=== PATIENT | female | born 1990 | race Caucasian/White ===

== ENCOUNTER 2016-06-06 07:26 | Inpatient (IN) | payer BC ==
[2016-06-06] MEDS ORDERED: Dinoprostone* 10 MG VAG.SUPP VAGINAL ONE (08:02)
[2016-06-06] MEDS ORDERED: Promethazine INJ(RESTRICTED)* 25 MG/ML 1 ML VIAL IM ONE (21:01)
[2016-06-06] MEDS ORDERED: Nalbuphine* 20 MG/ML 1 ML VIAL IM ONE (21:01)
[2016-06-07 09:28] LABS: Hematocrit 39 % (35-47); Hemoglobin 12.9 g/dl (12.0-16.0); Mean Corpuscular HGB Conc 33 g/dl (31-36); Mean Corpuscular Hemoglobin 29 pg (27-31); Mean Corpuscular Volume 87 fL (80-97); Mean Platelet Volume 9 um3 (7.4-10.4); Red Blood Count 4.43 10^6/ul (4.0-5.4); Red Cell Distribution Width 13 % (10.5-15); White Blood Count 12.5 10^3/ul (3.5-10.8)
[2016-06-07 09:43] LABS: Albumin 3.3 g/dL (3.2-5.2); BUN/Creatinine Ratio 14.7 (8-20); Calcium 9.2 mg/dL (8.6-10.3); EGFR African American 132.5 (>60); Globulin 2.8 g/dL (2-4); Potassium 4.1 mmol/L (3.5-5.0); Total Bilirubin 0.4 mg/dL (0.2-1.0); Total Protein 6.1 g/dL (6.4-8.9); Uric Acid 5.8 mg/dL (2.3-6.6)
[2016-06-07] MEDS ORDERED: Oxytocin in LR* 20 UNITS/1,000 ML BAG IVPB SCH (10:00)
[2016-06-07] MEDS ORDERED: Dinoprostone* 10 MG VAG.SUPP VAGINAL ONE (20:50)
[2016-06-07] MEDS ORDERED: Nalbuphine* 20 MG/ML 1 ML VIAL IV ONE (20:52)
[2016-06-07] MEDS ORDERED: Promethazine INJ(RESTRICTED)* 25 MG/ML 1 ML VIAL IV ONE (20:53)
[2016-06-08] MEDS ORDERED: Oxytocin in LR* 20 UNITS/1,000 ML BAG IVPB SCH ×3 (09:00→15:00)
[2016-06-08] MEDS ORDERED: OBEPIDURAL* 250 ML ONE (09:46)
[2016-06-08] MEDS ORDERED: EPHEDrine (Pressors)* 50 MG/ML VIAL IV PUSH PRN ×2 (10:23)
[2016-06-08] MEDS ORDERED: Sodium Citrate/Citric Acid* 15 ML UDC PO PRN (10:23)
[2016-06-08] MEDS ORDERED: Phenylephrine IV* 40 MCG/ML 10 ML SYRINGE IV PUSH PRN ×2 (10:23)
[2016-06-08] MEDS ORDERED: Famotidine TAB* 20 MG PO PRN (10:23)
[2016-06-08] MEDS ORDERED: OBEPIDURAL* 250 ML EPIDURAL SCH (11:00)
[2016-06-08] MEDS ORDERED: Ondansetron INJ* 2 MG/ML VIAL ONE (14:14)
[2016-06-08] MEDS ORDERED: OXYTOCIN* 10 UNITS/ML 1 ML VIAL ONE ×2 (14:14→15:24)
[2016-06-08] MEDS ORDERED: fentaNYL* 50 MCG/ML 2 ML VIAL (100 MCG VIAL) ONE (14:15)
[2016-06-08] MEDS ORDERED: Lidocaine 2% EPI 1:200000 MPF* 20 ML VIAL ONE (14:15)
[2016-06-08] MEDS ORDERED: ceFOXitin 2 GM IVPREMIX* 2 GM/50 ML BAG IVPB ONE (14:15)
[2016-06-08] MEDS ORDERED: Morphine PF AMP (0.5MG/ML)* 5 MG/10 ML AMP ONE (14:15)
[2016-06-08] MEDS ORDERED: Acetaminophen TAB* 325 MG PO PRN (14:37)
[2016-06-08] MEDS ORDERED: Witch Hazel PAD* JAR TOPICAL PRN (14:37)
[2016-06-08] MEDS ORDERED: Dibucaine 1% 28.35 GM TUBE PR PRN (14:37)
[2016-06-08] MEDS ORDERED: Glycerin ADULT SUPP PR PRN (14:37)
[2016-06-08] MEDS ORDERED: HYDROmorphone INJ* 1 MG/ML CARPUJECT SYRINGE ONE (15:12)
[2016-06-08] MEDS ORDERED: DiMENhydriNATE IV* 50 MG/ML VIAL IV PUSH PRN ×2 (15:56→15:57)
[2016-06-08] MEDS ORDERED: PROCHLORPERAZINE INJ 5 MG/ML 2 ML VIAL IV PRN ×2 (15:56→15:57)
[2016-06-08] MEDS ORDERED: Ondansetron INJ* 2 MG/ML VIAL IV PRN ×2 (15:56→15:57)
[2016-06-08] MEDS ORDERED: Scopolamine 1.5 mg* PATCH TRANSDERM PRN (15:56)
[2016-06-08] MEDS ORDERED: fentaNYL* 50 MCG/ML 2 ML VIAL (100 MCG VIAL) IV PRN (15:56)
[2016-06-08] MEDS ORDERED: Nalbuphine* 20 MG/ML 1 ML VIAL IV PRN (15:57)
[2016-06-08] MEDS ORDERED: diPHENhydraMINE IV* 50 MG/ML 1 ml VIAL (BENADRYL) IV PRN (15:57)
[2016-06-08] MEDS ORDERED: Naloxone* 0.4 MG/ML 1 ML VIAL IV PRN (15:57)
[2016-06-08] MEDS ORDERED: oxyCODONE/Acetamin 5/325 MG* TAB PO PRN (15:57)
[2016-06-08] MEDS ORDERED: Scopolamine 1.5 mg* PATCH TRANSDERM SCH (16:00)
[2016-06-08] MEDS ORDERED: Scopolamine PATCH Remove* 1 NOTE MISC PATCH OFF SCH (16:00)
[2016-06-08] MEDS ORDERED: Lidocaine 1% MPF* 2 ML VIAL ONE (17:00)
[2016-06-08] MEDS: Ibuprofen TAB* 600 MG PO PRN ×2 (17:38→23:56)
[2016-06-08] MEDS: Simethicone TAB* 80 MG TAB.CHEW PO SCH ×2 (17:39→21:15)
[2016-06-08] MEDS: oxyCODONE/Acetamin 5/325 MG* TAB PO PRN ×2 (17:39→21:14)
[2016-06-08] MEDS: Docusate CAP* 100 MG PO SCH (21:14)
[2016-06-09] MEDS: oxyCODONE/Acetamin 5/325 MG* TAB PO PRN ×4 (03:28→23:40)
--- NOTE | 2016-06-09 07:14 | OP ---
DATE OF OPERATION: 06/08/16 - ROOM #104 DATE OF : 86 SURGEON: Georgiana Schafer MD POND SUPERVISOR: Sana Lopez CNM LEAD ELECTRICIAN: Zander Calles MD ANESTHESIOLOGIST: Dr. Gaines. ANESTHESIA: Epidural. PRE-OP DIAGNOSES: Intrauterine , 41-1/7 weeks, arrest of dilation, arrest of descent. POST-OP DIAGNOSES: Intrauterine , 41-1/7 weeks, arrest of dilation, arrest of descent. OPERATIVE PROCEDURE: Primary low transverse section. ESTIMATED BLOOD LOSS: 550 cc. FLUIDS: 1500 cc of crystalloid. URINE OUTPUT: 200 cc of clear yellow urine. FINDINGS: Revealed a vertex male , wedged in the left occiput anterior position. Nuchal cord x1. No meconium. Apgars 9 at 1 minute and 9 at 5 minutes. Weight 7 pounds 15 ounces. Normal-appearing tubes and ovaries. Normal-appearing placenta, manually extracted. Three-vessel cord intact. Normal uterine cavity without evidence of any retained placental tissue or membranes. COMPLICATIONS: None apparent. DISPOSITION: Stable to recovery room. DESCRIPTION OF PROCEDURE: The patient was placed in dorsal lithotomy position. The abdomen was prepped and draped in the sterile standard fashion. Anesthesia was tested to appropriate level. After identifying the patient with the universal protocol, an incision was made two fingerbreadths above the pubic symphysis. This was carried down through the fascia. Fascia was scored in the midline and extended laterally and superiorly using curved Brannon scissors. The fascia was superiorly and inferiorly with blunt and sharp dissection. The peritoneum was then entered bluntly. The peritoneal incision was extended superiorly and inferiorly while directly visualizing the bowel and bladder using Metzenbaum scissors. The bladder blade was inserted. Lower uterine segment was identified, tented up with an Allis. Incision was made in the lower uterine segment with a scalpel. This was carried down through to membranes. The incision was extended laterally and superiorly using bandage scissors. Head was then delivered. Nuchal cord was reduced. Anterior and posterior shoulders delivered. The cord was milked and then clamped. was handed off to the awaiting open cut examiner, Dr. Calles. Appropriate cord blood was obtained. Placenta was then manually extracted. The uterus was exteriorized, wrapped in warm moist laparotomy sponge. The uterine cavity was noted to be free of any membranes or placental tissue. The uterine incision itself was reapproximated using 0 Vicryl; first layer running locked, second layer running imbricated. Uterus was noted to have normal tubes and ovaries. The uterus was returned intra-abdominally. Colic gutters were lavaged. Hysterotomy site was noted to be hemostatic. Peritoneum was then reapproximated using 3-0 Vicryl in a running fashion. Subfascial area was lavaged. Hemostasis was assured. The fascia itself was reapproximated using 0 Vicryl x2 in a running fashion. The Camper's fascia was then reapproximated using 3-0 Vicryl in an interrupted fashion. The skin was then reapproximated using 4-0 Monocryl in a subcuticular fashion. All sponge, instrument, and blade counts were correct throughout the case. Mastisol and Steri's were applied and the patient was taken to recovery room in stable condition. [id number]/[facility] #: [id number] PRATIMA
[2016-06-09] MEDS: Ibuprofen TAB* 600 MG PO PRN ×3 (07:50→21:09)
[2016-06-09 08:11] LABS: Hematocrit 30 % (35-47); Hemoglobin 10.2 g/dl (12.0-16.0); Mean Corpuscular HGB Conc 34 g/dl (31-36); Mean Corpuscular Hemoglobin 30 pg (27-31); Mean Corpuscular Volume 88 fL (80-97); Mean Platelet Volume 9 um3 (7.4-10.4); Red Cell Distribution Width 13 % (10.5-15); White Blood Count 13.5 10^3/ul (3.5-10.8)
[2016-06-09] MEDS: Simethicone TAB* 80 MG TAB.CHEW PO SCH ×4 (08:56→21:10)
[2016-06-09] MEDS: Docusate CAP* 100 MG PO SCH ×3 (08:56→21:10)
[2016-06-09] MEDS ORDERED: Ferrous Gluconate TAB* 324 MG TAB PO SCH (09:00)
[2016-06-09] MEDS ORDERED: Measles, Mumps,Rubella VACC* 0.5 ML/VIAL SUBCUT ONE (09:00)
[2016-06-10] MEDS: Ibuprofen TAB* 600 MG PO PRN ×4 (04:02→23:27)
[2016-06-10] MEDS: Docusate CAP* 100 MG PO SCH ×3 (09:05→20:04)
[2016-06-10] MEDS: Simethicone TAB* 80 MG TAB.CHEW PO SCH ×4 (09:05→20:05)
[2016-06-10] MEDS: oxyCODONE/Acetamin 5/325 MG* TAB PO PRN ×3 (09:05→23:26)
--- NOTE | 2016-06-10 20:22 | PTEDU ---
Patient Name: JOCE FLOWERS JOCE FLOWERS selected video: Follow Me Mum: [employer] [place] [facility] to view on 06/10/19 17 at 8:21:53 PM [id number]
[2016-06-11] MEDS: Ibuprofen TAB* 600 MG PO PRN (05:42)
[2016-06-11 08:24] VITALS: BP 122/69
[2016-06-11] MEDS: Docusate CAP* 100 MG PO SCH (09:14)
[2016-06-11] MEDS: Simethicone TAB* 80 MG TAB.CHEW PO SCH (09:14)
[2016-06-11] MEDS ORDERED: Scopolamine PATCH Remove* 1 NOTE MISC PATCH OFF ONE (15:57)
== END 2016-06-11 13:06 | disposition home or self-care (01) | DRG 540 ==
LOC: MCHOBOUT 07:26 → UNDOADMIN 08:14 → MCHOB 08:14
PROVIDERS: ADMIT Midwife; ATTEND Obstetrics & Gynecology
PROC: 3E033VJ Introduction of Other Hormone into Peripheral Vein, Percutaneous Approach (ICD-10-PCS; 2016-06-08)
PROC: 10907ZC Drainage of Amniotic Fluid, Therapeutic from Products of Conception, Via Natural or Artificial Opening (ICD-10-PCS; 2016-06-08)
PROC: 10D00Z1 Extraction of Products of Conception, Low, Open Approach (ICD-10-PCS; principal; 2016-06-08 14:43)
DX: O62.0 Primary inadequate contractions (principal); O48.0 Post-term pregnancy; O62.1 Secondary uterine inertia; O69.81X0 Labor and delivery complicated by cord around neck, without compression, not applicable or unspecified; Z3A.41 41 weeks gestation of pregnancy; Z37.0 Single live birth
CPT/HCPCS: 36415; 80053; 84550; 85025; 86850; 86900; 86901; 90707; A9270-GY; J0694; J1170; J2300; J2405; J2550; J2590; J3010